=== PATIENT | male | born 1965 | race Caucasian/White ===

== ENCOUNTER 2017-10-18 02:29 | Emergency (ER) | payer OTHER ==
[~2017-10-18] VITALS: Ht 185.4 cm; Wt 208.7 kg
[~2017-10-18 02:29] MED LIST: ALEVE220 MG; ALLOPURINOL 30300 M1; ASPIR 8181 MG PO; ATORVASTATIN CA40 MG PO; BUSPIRONE HCL5 MG PO; CELEXA20 MG PO; DILAUDID 4 MG TA4 M1; DILAUDID 4 MG TA4 M1 PO; FISH OIL 1,001000 M2; FISH OIL 500 M1 EAC1; FLEXERIL; FLEXERIL PO; GLUMETZA1000; GLYBURIDE; INSULIN PEN; LANTUS100 UNIT/M SUBQ; NAPROSYN500 MG PO; NORCO 5-325 TA1 EACH PO; NORVASC 2.5 MG2.5 M1; OMEPRAZOLE 20 M20 M1 PO; PREVACID15 MG; PREVACID30 MG; PRINIVIL10 MG; TRIAMCINOLONE A80 G2 TOP; UNICOMPLEX M TA1 TA1 PO; VITAMINC500; ZANTAC 150MG T150 MG; ZYRTEC10 M5 PO
[2017-10-18 02:47] VITALS: BP 147/85
== END 2017-10-18 02:48 | disposition home or self-care (01) ==
LOC: M.ERS 02:29
DX: G89.29 Other chronic pain (principal); M54.5 Low back pain; E11.9 Type 2 diabetes mellitus without complications; K21.9 Gastro-esophageal reflux disease without esophagitis; M10.9 Gout, unspecified; Z88.8 Allergy status to other drugs, medicaments and biological substances

== ENCOUNTER 2018-02-18 03:30 | Emergency (ER) | payer OTHER ==
[~2018-02-18] VITALS: Ht 185.4 cm; Wt 208.7 kg
[2018-02-18 05:13] VITALS: BP 136/71
== END 2018-02-18 05:13 | disposition home or self-care (01) ==
LOC: M.ERS 03:30
DX: G89.29 Other chronic pain (principal); M54.5 Low back pain; E11.9 Type 2 diabetes mellitus without complications; M10.9 Gout, unspecified; K21.9 Gastro-esophageal reflux disease without esophagitis; Z90.49 Acquired absence of other specified parts of digestive tract; Z88.5 Allergy status to narcotic agent; Z88.8 Allergy status to other drugs, medicaments and biological substances

== ENCOUNTER 2018-04-08 04:03 | Emergency (ER) | payer OTHER ==
[~2018-04-08] VITALS: Ht 185.4 cm; Wt 204.1 kg
[2018-04-08 05:16] VITALS: BP 174/97
== END 2018-04-08 05:34 | disposition home or self-care (01) ==
LOC: M.ERS 04:03
DX: G89.29 Other chronic pain (principal); M54.5 Low back pain; E11.9 Type 2 diabetes mellitus without complications; M10.9 Gout, unspecified; K21.9 Gastro-esophageal reflux disease without esophagitis; Z88.5 Allergy status to narcotic agent; Z88.8 Allergy status to other drugs, medicaments and biological substances